=== PATIENT | male | born 1980 | race Two or more races ===

== ENCOUNTER 2020-10-19 10:23 | Emergency (ER) | payer MEDICAID, OTHER ==
[~2020-10-19] VITALS: Ht 167.6 cm; Wt 88.5 kg
[2020-10-19 16:05] VITALS: BP 120/88
[2020-10-19] MEDS ORDERED: HYDROcodone-ACET 5/325MG TAB PO ONE (16:30)
== END 2020-10-19 17:09 | disposition home or self-care (01) ==
LOC: ER 10:23
DX: S93.401A Sprain of unspecified ligament of right ankle, initial encounter (principal); F12.10 Cannabis abuse, uncomplicated; X50.1XXA Overexertion from prolonged static or awkward postures, initial encounter; Y93.89 Activity, other specified; Y92.89 Other specified places as the place of occurrence of the external cause; Y99.8 Other external cause status
CPT/HCPCS: 73610; 73630

== ENCOUNTER 2022-12-15 20:01 | Emergency (ER) | payer MEDICAID ==
[~2022-12-15] VITALS: Ht 167.6 cm; Wt 90.9 kg
[2022-12-16 00:05] VITALS: BP 137/84; PULSE 94; RESP 18; TEMP 98.4; O2SAT 95
[2022-12-16] MEDS ORDERED: DexAMETHasone SOD PHOS 10MG/1ML VIAL INJ IM ONE (00:45)
== END 2022-12-16 00:59 | disposition home or self-care (01) ==
LOC: ER 20:01
DX: R21 Rash and other nonspecific skin eruption (principal); F12.90 Cannabis use, unspecified, uncomplicated
CPT/HCPCS: 96372; 99283; J1100

== ENCOUNTER 2022-12-21 06:22 | Inpatient (IN) | payer MEDICAID ==
[~2022-12-21] VITALS: Ht 167.6 cm; Wt 91.0 kg
[2022-12-21] MEDS ORDERED: ACETAMINOPHEN 500 MG TAB PO ONE (07:00)
[2022-12-21] MEDS ORDERED: CEFTRIAXONE SODIUM 2 GM in D5W 5% 100 ML IV ONE (10:15)
[2022-12-21] MEDS ORDERED: SODIUM CHLORIDE 0.9% 2,750 ML IV ONE (10:30)
[2022-12-21 11:04] LABS: Basophils # (auto) 0 10 ^3/uL (0-0.2); Basophils % (auto) 0.2 % (0.0-2.0); Eosinophils # (auto) 0.1 10 ^3/uL (0-0.8); Eosinophils % (auto) 3.4 % (0.0-7.0); Hematocrit 43.4 % (41.0-53.0); Lymphocytes # (auto) 0.4 10 ^3/uL (0.4-5.4); Lymphocytes % (auto) 9.3 % (10.0-50.0); Mean Corpuscular Hgb Conc. 34.6 g/dL (32.0-36.0); Mean Corpuscular Volume 81.1 fL (80.0-100.0); Monocytes # (auto) 0.3 10 ^3/uL (0-1.3); Monocytes % (auto) 7.5 % (0.0-12.0); Neutrophils # (auto) 3.3 10 ^3/uL (1.6-8.6); Neutrophils % (auto) 79.6 % (37.0-80.0); Nucleated Red Blood Cells % 0.2 %; Red Blood Cells 5.35 10^6/uL (4.5-5.90); Red Cell Distribution Width 12.7 % (11.8-14.3); White Blood Cell 4.2 10^3/uL (4.4-10.8)
[2022-12-21 11:07] LABS: Urine Bacteria NONE SEEN /hpf (None Seen); Urine Blood Negative /uL (Negative); Urine Clarity Clear (Clear); Urine Color Yellow (Yellow); Urine Mucus FEW (None Seen); Urine Protein, UAD 1+ (Negative); Urine Specific Gravity 1.047 (1.001-1.035); Urine Urobilinogen Normal (Negative); Urine WBC 4 /hpf (0 - 3)
[2022-12-21 11:48] LABS: Calcium 8.2 mg/dL (8.7-10.4); Potassium 3.4 mmol/L (3.5-5.1)
[2022-12-21 11:53] LABS: Albumin 3.7 g/dL (3.4-5.0); BUN/Creatinine Ratio 13.1 (10.0-20.0); Bilirubin, Total 0.7 mg/dL (0.2-1.0); Total Protein 7.7 g/dL (6.4-8.2)
[2022-12-21 12:12] LABS: INR 1.05 (0.9-1.15)
[2022-12-21] MEDS ORDERED: POTASSIUM EFFERVESENT TAB 25 MEQ PO ONE ×2 (13:45→17:00)
[2022-12-21 14:50] VITALS: PULSE 100; RESP 20; O2SAT 96
[2022-12-21] MEDS ORDERED: LIDOCAINE 1% HCL (LOCAL ANESTH.) INJ 20ML MDV ONE (14:58)
[2022-12-21] MEDS ORDERED: ACETAMINOPHEN 650 mg PER 20.3 mL UD PO ONE (15:45)
[2022-12-21] MEDS ORDERED: LIDOCAINE 1% HCL (LOCAL ANESTH.) INJ 20ML MDV ID ONE (15:45)
[2022-12-21] MEDS ORDERED: VANCOMYCIN PER PHARMACY 0 MG IV SCH (17:00)
[2022-12-21] MEDS ORDERED: ACETAMINOPHEN 325 MG TAB PO PRN (17:00)
[2022-12-21 17:09] LABS: CSF White Blood Cells 1 CUMM (0-5); Description,CSF CLEAR AND COLORLESS
[2022-12-21 17:10] LABS: Protein, CSF 63.8 mg/dL (15-45)
[2022-12-21] MEDS ORDERED: HYDR-4072 (17:12)
[2022-12-21] MEDS ORDERED: TAMS0.4C36 PO (17:12)
[2022-12-21] MEDS ORDERED: PRED20TA2 PO (17:12)
[2022-12-21] MEDS ORDERED: TRIA0.5C TOP (17:12)
[2022-12-21] MEDS ORDERED: NALO4SPR3 NAS (17:12)
[2022-12-21] MEDS: SODIUM CHLORIDE 0.9% 1,000 ML IV SCH (17:55)
[2022-12-21 20:29] LABS: Erythrocyte Sedimentation Rate 2 mm/hr (0-20)
[2022-12-21 21:12] LABS: Triglycerides 94 mg/dL (< 150)
[2022-12-21 21:13] LABS: Cholesterol 143 mg/dL (< 200); LDL Cholesterol 109 mg/dL (< 100)
[2022-12-21 21:14] LABS: HDL Cholesterol 27 mg/dL (40-59)
[2022-12-21] MEDS: CEFTRIAXONE SODIUM 2 GM in D5W 5% 100 ML IV SCH (21:16)
[2022-12-21 21:40] VITALS: PULSE 77; RESP 12; O2SAT 96
[2022-12-21] MEDS: ASCORBIC ACID 500 MG TAB PO SCH (21:56)
[2022-12-21] MEDS: HYDROcodone-ACET 5/325MG TAB PO PRN (21:56)
[2022-12-21] MEDS ORDERED: VANCOMYCIN 1GM/250ML 250 ML IV ONE (22:00)
[2022-12-22] VITALS (7 sets, daily range): BP systolic 95–113; BP diastolic 61–79; PULSE 82–99; RESP 14–20; TEMP 98.4–98.6; O2SAT 90–97
[2022-12-22] MEDS: SODIUM CHLORIDE 0.9% 1,000 ML IV SCH ×3 (01:20→17:43)
[2022-12-22 06:03] LABS: Basophils # (auto) 0 10 ^3/uL (0-0.2); Basophils % (auto) 0.6 % (0.0-2.0); Eosinophils # (auto) 0.3 10 ^3/uL (0-0.8); Eosinophils % (auto) 7.6 % (0.0-7.0); Hematocrit 44.3 % (41.0-53.0); Hemoglobin 15.5 g/dL (13.5-17.5); Lymphocytes # (auto) 0.9 10 ^3/uL (0.4-5.4); Lymphocytes % (auto) 24.5 % (10.0-50.0); Mean Corpuscular Hemoglobin 28.8 pg (28.0-32.0); Mean Corpuscular Volume 82.5 fL (80.0-100.0); Monocytes # (auto) 0.4 10 ^3/uL (0-1.3); Monocytes % (auto) 11.2 % (0.0-12.0); Neutrophils % (auto) 56.1 % (37.0-80.0); Nucleated Red Blood Cells % 0.8 %; Red Blood Cells 5.37 10^6/uL (4.5-5.90); Red Cell Distribution Width 12.6 % (11.8-14.3); White Blood Cell 3.7 10^3/uL (4.4-10.8)
[2022-12-22 06:22] LABS: Alanine Aminotransferase 40 U/L (7-40); Albumin 4.4 g/dL (3.2-4.8); Alkaline Phosphatase 63 U/L (46-116); Anion Gap 7.1 (5-15); Aspartate Aminotransferase 23 U/L (13-40); BUN/Creatinine Ratio 11.4 (10.0-20.0); Blood Urea Nitrogen 10 mg/dL (9-23); Calcium 8.7 mg/dL (8.7-10.4); Carbon Dioxide 26.9 mmol/L (20-30); Chloride 103 mmol/L (98-107); Glucose 119 mg/dL (74-106); Potassium 3.3 mmol/L (3.5-5.1); Sodium 137 mmol/L (136-145)
[2022-12-22 06:23] LABS: Bilirubin, Total 0.9 mg/dL (0.2-1.0); Total Protein 7.5 g/dL (5.7-8.2)
[2022-12-22] MEDS: HYDROcodone-ACET 5/325MG TAB PO PRN ×3 (07:34→17:43)
[2022-12-22] MEDS: CEFTRIAXONE SODIUM 2 GM in D5W 5% 100 ML IV SCH ×2 (08:32→22:43)
[2022-12-22] MEDS ORDERED: LORazepam 2MG/ML-1ML VIAL IV PRN (10:15)
[2022-12-22] MEDS: ASCORBIC ACID 500 MG TAB PO SCH ×2 (10:26→22:43)
[2022-12-22] MEDS: MULTIPLE VITAMIN TAB PO SCH (10:26)
[2022-12-22] MEDS: ZINC SULFATE 220mg CAP or TAB PO SCH (10:26)
[2022-12-22] MEDS: ENOXAPARIN SOD 40 MG/0.4 ML SYRINGE SC SCH (10:26)
[2022-12-22] MEDS: TAMSULOSIN HYDROCHLORIDE 0.4 MG CAP PO SCH (10:26)
[2022-12-22 10:43] LABS: COVID19 ANTIGEN SOFIA FIA NEGATIVE (NEGATIVE)
[2022-12-22] MEDS: VANCOMYCIN 1GM/250ML 250 ML IV SCH ×2 (14:52→23:53)
[2022-12-22] MEDS ORDERED: MORPHINE SULFATE INJ 2 MG/ml SYRG IV PRN (16:00)
[2022-12-22] MEDS ORDERED: ONDANSETRON HCL 4 MG/2 ML VIAL IV PRN (16:00)
[2022-12-22] MEDS ORDERED: DOCUSATE SOD 100 MG CAP PO PRN (16:00)
[2022-12-22] MEDS: ACETAMINOPHEN 500 MG TAB PO PRN (20:13)
[2022-12-23] MEDS: HYDROcodone-ACET 5/325MG TAB PO PRN ×4 (00:26→22:38)
[2022-12-23 05:00] VITALS: BP 112/68; PULSE 77; RESP 20; TEMP 98.7; O2SAT 95
[2022-12-23] MEDS: ACETAMINOPHEN 500 MG TAB PO PRN ×2 (05:01→14:32)
[2022-12-23 06:03] LABS: Chloride 105 mmol/L (98-107); Potassium 3.6 mmol/L (3.5-5.1); Sodium 138 mmol/L (136-145)
[2022-12-23 06:04] LABS: Anion Gap 6.9 (5-15); Calcium 8.5 mg/dL (8.7-10.4); Carbon Dioxide 26.1 mmol/L (20-30)
[2022-12-23 06:09] LABS: Blood Urea Nitrogen 6 mg/dL (9-23); Glucose 108 mg/dL (74-106)
[2022-12-23 06:24] LABS: Hematocrit 41.7 % (41.0-53.0); Hemoglobin 14.2 g/dL (13.5-17.5); Mean Corpuscular Hemoglobin 28.2 pg (28.0-32.0); Mean Corpuscular Hgb Conc. 34.1 g/dL (32.0-36.0); Mean Corpuscular Volume 82.6 fL (80.0-100.0); Red Blood Cells 5.05 10^6/uL (4.5-5.90); Red Cell Distribution Width 12.4 % (11.8-14.3)
[2022-12-23] MEDS: VANCOMYCIN 1GM/250ML 250 ML IV SCH (06:35)
[2022-12-23 06:39] LABS: Basophils % (manual) 0 (0.0-2.0); Blast Cells 0; Metamyelocytes % 0; Myelocytes % 0; Promyelocytes % 0
[2022-12-23 07:07] LABS: RPR Non Reactive (Non Reactive)
[2022-12-23 08:06] LABS: PSA Free 0.06 ng/mL; Prostate Specific Antigen 0.2 ng/mL (0.0-4.0)
[2022-12-23 08:42] VITALS: BP 103/53; PULSE 72; RESP 18; TEMP 98.5; O2SAT 97
[2022-12-23 09:50] LABS: Band Neutrophils % (manual) 4; Eosinophils % (manual) 7 (0-7); Lymphocytes % (manual) 44 (10.0-50.0); Monocytes % (manual) 17 (0-12); Reactive Lymphocytes 5
[2022-12-23 09:51] LABS: Platelet Estimate Decreased; RBC Morphology Normal
[2022-12-23] MEDS: ASCORBIC ACID 500 MG TAB PO SCH ×2 (10:22→22:38)
[2022-12-23] MEDS: MULTIPLE VITAMIN TAB PO SCH (10:22)
[2022-12-23] MEDS: ZINC SULFATE 220mg CAP or TAB PO SCH (10:23)
[2022-12-23] MEDS: ENOXAPARIN SOD 40 MG/0.4 ML SYRINGE SC SCH (10:23)
[2022-12-23] MEDS: TAMSULOSIN HYDROCHLORIDE 0.4 MG CAP PO SCH (10:23)
[2022-12-23] MEDS: SODIUM CHLORIDE 0.9% 1,000 ML IV SCH (10:24)
[2022-12-23 12:41] VITALS: BP 97/68; PULSE 84; RESP 18; TEMP 93.8; O2SAT 95
[2022-12-23 15:07] LABS: CAP Mandated Reflex to Culture Not Indicated (.); Cryptococcus Antigen CSF Negative (Negative); HSV-1 DNA CSF Negative (Negative); HSV-2 DNA Negative (Negative)
[2022-12-23 16:50] VITALS: BP 96/56; PULSE 64; RESP 18; TEMP 98.8; O2SAT 99
[2022-12-23] MEDS: DOXYCYCLINE 100MG/250ML 250 ML IV SCH (18:10)
[2022-12-23 20:00] VITALS: PULSE 85; RESP 18; O2SAT 98
[2022-12-23 22:00] VITALS: BP 113/65; PULSE 85; RESP 18; TEMP 97.9; O2SAT 98
[2022-12-24 05:00] VITALS: BP 118/71; PULSE 68; RESP 18; TEMP 98; O2SAT 96
[2022-12-24] MEDS: SODIUM CHLORIDE 0.9% 1,000 ML IV SCH ×3 (06:44→19:32)
[2022-12-24] MEDS: DOXYCYCLINE 100MG/250ML 250 ML IV SCH ×2 (06:44→18:32)
[2022-12-24 08:00] VITALS: BP 126/84; PULSE 68; RESP 22; TEMP 97.8; O2SAT 97
[2022-12-24] MEDS: HYDROcodone-ACET 5/325MG TAB PO PRN ×2 (08:51→18:40)
[2022-12-24] MEDS ORDERED: levoFLOXacin 500MG 100 ML IV SCH (10:00)
[2022-12-24 12:00] VITALS: BP 120/93; PULSE 68; RESP 21; TEMP 97.7; O2SAT 97
[2022-12-24] MEDS: ASCORBIC ACID 500 MG TAB PO SCH ×2 (12:18→22:24)
[2022-12-24] MEDS: MULTIPLE VITAMIN TAB PO SCH (12:18)
[2022-12-24] MEDS: ENOXAPARIN SOD 40 MG/0.4 ML SYRINGE SC SCH (12:18)
[2022-12-24] MEDS: ZINC SULFATE 220mg CAP or TAB PO SCH (12:18)
[2022-12-24] MEDS: TAMSULOSIN HYDROCHLORIDE 0.4 MG CAP PO SCH (12:18)
[2022-12-24 16:00] VITALS: BP 108/71; PULSE 68; RESP 20; TEMP 97.8; O2SAT 94
[2022-12-24 20:00] VITALS: PULSE 85; RESP 18; O2SAT 96
[2022-12-24 20:07] LABS: Amphetamine Screen, Urine Neg (NEGATIVE); Barbiturate Scree,Urine Neg (NEGATIVE); Benzodiazephine Screen, Urine Neg (NEGATIVE); Cannabinoid Screen, Urine Neg (NEGATIVE); Cocaine Screen, Urine Neg (NEGATIVE); Opiate Scree,Urine Pos (NEGATIVE); Phencyclidine Screen, Urine Neg (NEGATIVE)
[2022-12-25 05:00] VITALS: BP 112/64; PULSE 63; RESP 18; TEMP 98.5; O2SAT 98
[2022-12-25 06:12] LABS: Chloride 109 mmol/L (98-107); Sodium 140 mmol/L (136-145)
[2022-12-25 06:18] LABS: BUN/Creatinine Ratio 12.3 (10.0-20.0); Blood Urea Nitrogen 9 mg/dL (9-23); Glucose 101 mg/dL (74-106)
[2022-12-25] MEDS: DOXYCYCLINE 100MG/250ML 250 ML IV SCH (06:27)
[2022-12-25 07:29] LABS: Basophils # (auto) 0 10 ^3/uL (0-0.2); Basophils % (auto) 0.8 % (0.0-2.0); Eosinophils # (auto) 0.1 10 ^3/uL (0-0.8); Eosinophils % (auto) 2.6 % (0.0-7.0); Hematocrit 41.2 % (41.0-53.0); Hemoglobin 14.1 g/dL (13.5-17.5); Lymphocytes # (auto) 2.6 10 ^3/uL (0.4-5.4); Lymphocytes % (auto) 45.6 % (10.0-50.0); Mean Corpuscular Hemoglobin 28.2 pg (28.0-32.0); Mean Corpuscular Hgb Conc. 34.3 g/dL (32.0-36.0); Mean Corpuscular Volume 82.4 fL (80.0-100.0); Monocytes # (auto) 0.5 10 ^3/uL (0-1.3); Monocytes % (auto) 8.9 % (0.0-12.0); Neutrophils # (auto) 2.4 10 ^3/uL (1.6-8.6); Neutrophils % (auto) 42.1 % (37.0-80.0); Nucleated Red Blood Cells % 0.4 %; Red Cell Distribution Width 12.5 % (11.8-14.3); White Blood Cell 5.7 10^3/uL (4.4-10.8)
[2022-12-25 08:00] VITALS: BP 101/65; PULSE 70; RESP 18; TEMP 97.8; O2SAT 97
[2022-12-25 09:07] LABS: Anti-Nuclear Antibody Direct Negative (Negative)
[2022-12-25] MEDS: ASCORBIC ACID 500 MG TAB PO SCH (09:55)
[2022-12-25] MEDS: TAMSULOSIN HYDROCHLORIDE 0.4 MG CAP PO SCH (09:55)
[2022-12-25] MEDS: ZINC SULFATE 220mg CAP or TAB PO SCH (09:55)
[2022-12-25] MEDS: MULTIPLE VITAMIN TAB PO SCH (09:55)
[2022-12-25] MEDS: ENOXAPARIN SOD 40 MG/0.4 ML SYRINGE SC SCH (09:55)
[2022-12-25 10:33] VITALS: BP 101/65; PULSE 70; RESP 18; TEMP 97.8; O2SAT 97
[2022-12-25 11:11] LABS: Rheumatoid Arthritis Factor <10.0 IU/mL (<14.0)
[2022-12-25] MEDS: HYDROcodone-ACET 5/325MG TAB PO PRN (11:11)
[2022-12-25 15:14] VITALS: BP 106/70; PULSE 97; RESP 16; TEMP 97.4; O2SAT 98
[2022-12-25] MEDS ORDERED: DOXY-286 PO (15:45)
[2022-12-25 16:38] VITALS: BP 106/70; PULSE 97; RESP 16; TEMP 97.4; O2SAT 98
[2022-12-25 16:47] VITALS: BP 112/74; PULSE 70; RESP 19; TEMP 97.8; O2SAT 94
[2022-12-27 11:16] LABS: Hepatitis B Surface Antigen Negative (Negative)
[2022-12-27 11:37] LABS: Hepatitis A Ab IgM Negative; Hepatitis B Core IgM Negative
[2022-12-27 11:38] LABS: Hepatitis C Antibody Negative (Negative)
[2022-12-27 19:06] LABS: Mycoplasma pneumoniae IgG Ab 311 U/mL (0-99); Mycoplasma pneumoniae IgM Ab <770 U/mL (0-769)
[2022-12-28 01:06] LABS: Chlamydia Trachomatis, NAA Negative (Negative); Neisseria gonorrhoeae, NAA Negative (Negative)
== END 2022-12-25 17:30 | disposition home health service (06) | DRG 346 ==
LOC: ER 06:22 → OVERFLOW 17:11 → CENTRAL 12-22 11:34
PROVIDERS: ADMIT Nurse Practitioner Family; ATTEND Nurse Practitioner Acute Care
PROC: 009U3ZX Drainage of Spinal Canal, Percutaneous Approach, Diagnostic (ICD-10-PCS; principal; 2022-12-21)
DX: I77.6 Arteritis, unspecified (principal); D69.6 Thrombocytopenia, unspecified; E87.1 Hypo-osmolality and hyponatremia; E87.6 Hypokalemia; E66.9 Obesity, unspecified; D72.819 Decreased white blood cell count, unspecified; N40.0 Benign prostatic hyperplasia without lower urinary tract symptoms; R51.9 Headache, unspecified; B34.9 Viral infection, unspecified; R50.9 Fever, unspecified; Z82.49 Family history of ischemic heart disease and other diseases of the circulatory system; Z68.32 Body mass index [BMI] 32.0-32.9, adult
CPT/HCPCS: 36415; 62270; 70450; 70551; 71045; 76775; 80048; 80053; 80061; 80074; 80307; 81001; 82945; 83605; 83690; 84154; 84157; 84443; 85007; 85025; 85027; 85610; 85652; 86038; 86141; 86431; 86592; 86703; 86738; 87040; 87070; 87205; 87426; 87529; 87899; 89051; 95819; 96361; 96365; 99291; G0378; J0696; J2001; J3490; J7060